=== PATIENT | female | born 1970 | race Caucasian/White ===

== ENCOUNTER 2020-03-31 15:42 | Emergency (ER) | payer OTHER ==
[~2020-03-31] VITALS: Ht 170.2 cm; Wt 86.4 kg
[2020-03-31 15:49] VITALS: Ht 170.2 cm; Wt 86.4 kg
[2020-03-31] MEDS ORDERED: EFFEXOR XR150 MG PO (15:53)
[2020-03-31] MEDS ORDERED: SYNTHROID50 MCG PO (15:54)
[2020-03-31] MEDS ORDERED: KLONOPIN0.5 MG PO (15:54)
[2020-03-31] MEDS ORDERED: BUSPAR10 MG PO (15:54)
[2020-03-31] MEDS ORDERED: PROPRANOLOL HCL20 MG PO (15:54)
[2020-03-31] MEDS ORDERED: ESTRACE 0.5 MG0.5 MG PO (15:55)
[2020-03-31] MEDS ORDERED: PROVERA2.5 MG PO (15:55)
[2020-03-31] MEDS ORDERED: LUNESTA2 M1 PO (15:56)
[2020-03-31] MEDS ORDERED: TRAZODONE HCL50 MG PO (15:56)
[2020-03-31 16:26] LABS: BASOPHILS 0.3 % (0-2); EOSINOPHILS 1.5 % (0-7); HEMATOCRIT 43.3 % (36.0-48.0); HEMOGLOBIN 14.4 g/dL (12-16); IMMATURE GRANULOCYTES 0.2 % (0-5); LYMPHOCYTES 13.2 % (15-50); MCH 31.2 pg (26.0-34.0); MCHC 33.3 g/dL (31.0-37.0); MCV 93.9 fL (80.0-100.0); MEAN PLATELET VOLUME 10.7 fL (7.4-10.4); MONOCYTES 8.1 % (2-11); NEUTROPHILS 76.7 % (40-80); PLATELET COUNT 256 10x3/uL (130-400); RBC 4.61 10x6/uL (4.00-5.40); WBC 9.7 10x3/uL (4.8-10.8)
[2020-03-31 16:39] LABS: ANION GAP 7.1 mmol/L (8-16); CALCIUM 9.3 mg/dL (8.5-10.1); CARBON DIOXIDE 29.7 mmol/L (21.0-32.0); POTASSIUM - SERUM 3.8 mmol/L (3.5-5.1)
[2020-03-31 16:46] LABS: ALBUMIN 3.9 g/dL (3.4-5.0); BILIRUBIN - TOTAL 0.24 mg/dL (0.2-1.3); MAGNESIUM - SERUM 2.2 mg/dL (1.8-2.4); PROTEIN - SERUM 7.8 g/dL (6.4-8.2)
[2020-03-31 17:06] LABS: BILIRUBIN NEGATIVE (NEGATIVE); KETONE NEGATIVE (NEGATIVE); NITRITE NEGATIVE (NEGATIVE); UROBILINOGEN NORMAL mg/dL (< 2)
[2020-03-31 17:07] LABS: BACTERIA MODERATE HPF (NONE SEEN); EPITHELIAL CELLS 0-5 /hpf (0-5); UDS - AMPHET NEGATIVE QUAL (NEGATIVE); UDS - BARB NEGATIVE QUAL (NEGATIVE); UDS - BENZO NEGATIVE QUAL (NEGATIVE); UDS - COCAINE NEGATIVE QUAL (NEGATIVE); UDS - OPIATE NEGATIVE QUAL (NEGATIVE); UDS - PCP NEGATIVE QUAL (NEGATIVE); UDS - THC NEGATIVE QUAL (NEGATIVE); WHITE CELLS - URINE 0-5 HPF (0-4)
--- NOTE | 2020-03-31 19:25 | NUR ---
DR. BENSON NOTIFIED AND SITTER ORDERED. SITTER AT [facility]. NOTIFIED CHARGE NURSE AND ATTENDING REGARDING ASSESSMENT RESULTS. RESOURCES GIVEN TO PT AND SAFETY PLAN INITIATED.
[2020-04-01] MEDS ORDERED: OS-CAL500 MG PO (15:13)
[2020-04-01] MEDS ORDERED: VITAMIN D1000 UNI1 PO (15:14)
[2020-04-01] MEDS ORDERED: MAGNESIUM OXID500 MG PO (15:14)
[2020-04-01] MEDS ORDERED: MULTI-DAY VITAM1 TAB PO (15:15)
--- NOTE | 2020-04-01 23:30 | NUR ---
PATIENT WAS REASSESSED BY PSYCH NURSE, LISETTE MOYER RN. PATIENT STILL DENIES FEELING SUICIDAL OR WANTING TO HARM HERSELF. SHE FEELS DEPRESSED AND THINKS HER MEDICATIONS NEEDS TO BE READJUSTED. THIS NURSE SPOKE WITH DR. DUNN REGARDING REASSESSMENT RESULTS. HE WILL TALK TO PATIENT.
[2020-04-02 00:45] VITALS: BP 140/75
== END 2020-04-02 00:46 ==
LOC: D.ER 15:42
PROVIDERS: Emergency Medicine
DX: R45.851 Suicidal ideations (principal); F41.8 Other specified anxiety disorders